=== PATIENT | male | born 1985 | race Caucasian/White ===

== ENCOUNTER 2020-03-06 09:40 | Observation (INO) | payer BC, OTHER ==
[2020-03-06 10:04] VITALS: BMI 33.3
[2020-03-06] MEDS ORDERED: ASPIRIN 325 MG ENTERIC COATED TABLET (FP) PO ONE (10:38)
[2020-03-06] MEDS ORDERED: SODIUM CHLORIDE 0.9% 500 ML INFUS.BAG IV ONE (10:38)
[2020-03-06] MEDS ORDERED: ASPIRIN 81 MG CHEWABLE TABLETS ONE (10:44)
[2020-03-06] MEDS ORDERED: diazePAM 5 MG TABLET PO ONE (10:54)
[2020-03-06] MEDS ORDERED: ASPIRIN 81 MG CHEWABLE TABLETS PO ONE (10:55)
[2020-03-06] MEDS ORDERED: diazePAM 5 MG TABLET ONE ×2 (11:01→23:36)
[2020-03-06 11:05] LABS: BASO % 0.6 % (0-2.0); EOS % 0.9 % (0-4.5); HEMATOCRIT 51.5 % (35.4-49); HEMOGLOBIN 17.5 GM/dL (11.7-16.9); LYMPH % 19.2 % (8-40); MEAN CELL VOLUME 91.2 fl (80-96); MONO % 13.4 % (3.8-10.2); NEUT % 65.9 % (42.8-82.8); PLATELET COUNT 305 K/MM3 (134-434); RBC 5.64 M/mm3 (4.00-5.60); RDW 13.7 % (11.9-15.9); WHITE BLOOD COUNT 13.1 K/mm3 (4.0-10.0)
[2020-03-06 11:12] LABS: INR 1.06 (0.83-1.09); PROTHROMBIN TIME (PATIENT) 12.8 SEC (9.7-13.0)
[2020-03-06 11:15] LABS: ACTIVATED PTT 37.1 SECONDS (25.2-36.5)
[2020-03-06 11:17] LABS: POTASSIUM 3.9 mmol/L (3.5-5.1)
[2020-03-06 11:19] LABS: ALBUMIN 4.1 g/dl (3.4-5.0); BLOOD UREA NITROGEN 11.2 mg/dL (7-18); CALCIUM 11.1 mg/dL (8.5-10.1)
[2020-03-06 11:21] LABS: PH,URINE 8.5 (5.0-8.0); URINE APPEARANCE CLEAR; URINE BILIRUBIN NEGATIVE (NEGATIVE); URINE COLOR YELLOW; URINE GLUCOSE (UA) NEGATIVE (NEGATIVE); URINE KETONE NEGATIVE (NEGATIVE); URINE LEUK ESTERASE NEGATIVE (NEGATIVE); URINE NITRITE NEGATIVE (NEGATIVE); URINE PROTEIN NEGATIVE (NEGATIVE); URINE UROBILINOGEN 0.2 mg/dL (0.2-1.0)
[2020-03-06 11:23] LABS: CREATININE 1.3 mg/dL (0.55-1.3)
[2020-03-06 11:24] LABS: BILIRUBIN,TOTAL 0.8 mg/dL (0.2-1); TOT PROT 8.2 g/dl (6.4-8.2)
[2020-03-06 11:27] LABS: COCAINE, UR NEGATIVE ng/ml (CUTOFF=300); OPIATES, URI NEGATIVE ng/ml (CUTOFF=300); URINE BENZODIAZEPINES NEGATIVE ng/ml (CUTOFF=200)
[2020-03-06 11:28] LABS: METHADONE, UR NEGATIVE ng/ml (CUTOFF=300); PHENCYCLIDINE,URINE NEGATIVE ng/ml (CUTOFF=25); URINE BARBITURATES NEGATIVE ng/ml (CUTOFF=200)
[2020-03-06 11:29] LABS: URINE AMPHETAMINES POSITIVE ng/ml (CUTOFF=500)
[2020-03-06] MEDS ORDERED: SODIUM CHLORIDE 1,000 ML IV STA (11:54)
[2020-03-06] MEDS ORDERED: LORazepam 2 MG/ML SDV VIAL ONE (12:28)
[2020-03-06] MEDS ORDERED: SODIUM CHLORIDE 1,000 ML IV SCH (13:30)
[2020-03-06] MEDS ORDERED: diazePAM 5 MG TABLET PO PRN (14:17)
[2020-03-06] MEDS ORDERED: FAMOTIDINE 20 MG/50 ML IVPB 20 MG/50 ML MG IVPB ONE ×2 (14:56→15:06)
[2020-03-06] MEDS ORDERED: PANTOPRAZOLE 40 MG TABLET ONE (17:44)
[2020-03-06] MEDS: PANTOPRAZOLE 40 MG TABLET PO SCH (17:44)
[2020-03-06 21:15] LABS: CHLORIDE 105 mmol/L (98-107); POTASSIUM 3.8 mmol/L (3.5-5.1); SODIUM 138 mmol/L (136-145)
[2020-03-06 21:16] LABS: CALCIUM 8.8 mg/dL (8.5-10.1)
[2020-03-06 21:17] LABS: ANION GAP 9 MMOL/L (8-16); BLOOD UREA NITROGEN 17.2 mg/dL (7-18); CO2 24 mmol/L (21-32); GLUCOSE,RANDOM 122 mg/dL (74-106)
[2020-03-06 21:20] LABS: CREATININE 1.5 mg/dL (0.55-1.3)
[2020-03-07 07:29] LABS: HEMATOCRIT 42.1 % (35.4-49); MCH 30.7 pg (25.7-33.7); MCHC 33.4 g/dl (32.0-35.9); MEAN CELL VOLUME 91.9 fl (80-96); MEAN PLT VOLUME 8.8 fl (7.5-11.1); PLATELET COUNT 202 K/MM3 (134-434); RBC 4.58 M/mm3 (4.00-5.60); RDW 13.3 % (11.9-15.9); WHITE BLOOD COUNT 8.5 K/mm3 (4.0-10.0)
[2020-03-07] MEDS ORDERED: PANTOPRAZOLE 40 MG TABLET ONE (10:07)
[2020-03-07] MEDS: PANTOPRAZOLE 40 MG TABLET PO SCH (10:37)
[2020-03-07 11:51] VITALS: BP 133/81; PULSE 70; TEMP 97.5
== END 2020-03-07 13:55 | disposition home or self-care (01) | DRG 313 ==
LOC: JER 09:40 → JERBED 10:55 → INTOOBSV 10:55
PROVIDERS: ADMIT Internal Medicine; ATTEND Student in an Organized Health Care Education/Training Program
DX: R07.89 Other chest pain (principal); E66.9 Obesity, unspecified; K21.9 Gastro-esophageal reflux disease without esophagitis; F17.210 Nicotine dependence, cigarettes, uncomplicated; R00.0 Tachycardia, unspecified; E11.9 Type 2 diabetes mellitus without complications; E86.9 Volume depletion, unspecified; E83.52 Hypercalcemia; D75.1 Secondary polycythemia; Z20.828 Contact with and (suspected) exposure to other viral communicable diseases; F15.10 Other stimulant abuse, uncomplicated; E86.0 Dehydration; Z68.33 Body mass index [BMI] 33.0-33.9, adult
CPT/HCPCS: 36415; 71046-TC-FY; 80048; 80053; 80307; 81003; 82550; 82962; 84443; 84484; 85025; 85027; 85610; 85730; 93005; 93010; 99285-25; C9803; G0378; U0003